=== PATIENT | male | born 1960 | race Caucasian/White ===

== ENCOUNTER 2020-03-03 13:31 | Emergency (ER) | payer MEDICAID, OTHER ==
[~2020-03-03] VITALS: Ht 182.9 cm; Wt 82.0 kg
--- NOTE | 2020-03-03 13:59 | NUR ---
BREAK RN NOTE: PT BIBA, ACCOMPANIED WITH LAW ENFORECEMENT. PT HAD STENT PLACED 01/23, PT HAS BEEN INCARCERATED SINCE 02/27, PT STATES HALF-WAY HAS NOT BEEN ADMINISTERING CARDIAC MEDS. PT C/O LEFT SIDED CP RADIATING TO RT CHEST WITH INTERMITTENT SOB, NAUSEA AND LIGHTHEADEDNESS SINCE LAST NIGHT. PT RATES CP AT 6/10. PT RECEIVED [facility] DIRECTOR [employer] IN [facility]. EKG TAKEN ON ARRIVAL. 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 LAW ENFOREMENT AT BEDSIDE. AWAITING MD AND ORDERS. REPORT GIVEN TO PRIMARY RN CONNIE.
--- NOTE | 2020-03-03 14:01 | NUR ---
AMAN BLACK AT BEDSIDE FOR INITIAL ASSESSMENT.
[2020-03-03 14:31] LABS: BASOPHILS # (AUTO) 0.04 x10^3/uL (0-0.1); BASOPHILS % (AUTO) 1 % (0-1); EOSINOPHILS # (AUTO) 0.09 x10^3/uL (0-0.4); EOSINOPHILS % (AUTO) 1 % (1-7); LYMPHOCYTES # (AUTO) 1.39 x10^3/uL (1-3.4); LYMPHOCYTES % (AUTO) 19 % (22-44); MD NO; MEAN CORPUSCULAR HEMOGLOBIN 32.9 pg (27.5-34.5); MEAN CORPUSCULAR HGB CONC 33.2 g/dL (33.2-36.2); MEAN CORPUSCULAR VOLUME 99.3 fL (81-97); MEAN PLATELET VOLUME 7.5 fL (7.4-10.4); MONOCYTES # (AUTO) 0.48 x10^3/uL (0.2-0.8); MONOCYTES % (AUTO) 6 % (2-9); NEUTROPHILS # (AUTO) 5.47 x10^3/uL (1.8-6.8); NEUTROPHILS % (AUTO) 73 % (42-75); PLATELET COUNT 287 x10^3/uL (130-400); RED BLOOD COUNT 4.96 x10^6/uL (4.38-5.82); RED CELL DISTRIBUTION WIDTH 13.9 % (9.4-14.8)
[2020-03-03 14:41] LABS: ALANINE AMINOTRANSFERASE 39 U/L (12-78); ALBUMIN 3.2 g/dL (3.4-5.0); ANION GAP 3 mmol/L (5-15); CALCIUM 8.7 mg/dL (8.5-10.1); CHLORIDE 103 mmol/L (98-107); CREATININE 1.07 mg/dL (0.7-1.3)
[2020-03-03 14:45] LABS: ALKALINE PHOSPHATASE 77 U/L (45-117); BILIRUBIN,TOTAL 0.6 mg/dL (0.2-1.0); TOTAL PROTEIN 7.5 g/dL (6.4-8.2); TROPONIN I < 0.015 ng/mL (0.000-0.045)
[2020-03-03 15:25] VITALS: BP 128/92
--- NOTE | 2020-03-03 16:26 | NUR ---
ASSUMED CARE OF PT.
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
--- NOTE | 2020-03-03 17:04 | NUR ---
PT SEEN WALKING OUT OF AMBULANCE [facility]AY. APPROACHED PT. PT STATED HE IS NOT GOING TO STAY FOR COMPLETION OF TREATMENT. ENCOURAGED PT TO RETURN IF HE HAS CP OR FOR ANY REASON. ADDITIONALLY DISCUSSED WITH PT TO BE CERTAIN TO START TAKING HIS MEDS AGAIN. MADE AWARE PT LEFT WITHOUT TX COMPLETED.
== END 2020-03-03 17:08 | disposition home or self-care (01) ==
LOC: ED 15:30
DX: R07.9 Chest pain, unspecified (principal); I51.7 Cardiomegaly; R06.02 Shortness of breath; R00.2 Palpitations; Z87.891 Personal history of nicotine dependence
CPT/HCPCS: 36415; 71045; 80053; 83880; 84484; 85025; 93005; 99285

== ENCOUNTER 2020-11-08 22:41 | Emergency (ER) | payer MEDICAID, OTHER ==
[~2020-11-08] VITALS: Ht 182.9 cm; Wt 88.5 kg
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
[2020-11-08 23:19] LABS: BASOPHILS % (AUTO) 0 % (0-1); EOSINOPHILS % (AUTO) 3 % (1-7); LYMPHOCYTES % (AUTO) 28 % (22-44); MD NO; MEAN CORPUSCULAR HEMOGLOBIN 34.6 pg (27.5-34.5); MEAN CORPUSCULAR HGB CONC 34.6 g/dL (33.2-36.2); MEAN PLATELET VOLUME 7.5 fL (7.4-10.4); MONOCYTES % (AUTO) 8 % (2-9); NEUTROPHILS % (AUTO) 61 % (42-75); PLATELET COUNT 216 x10^3/uL (130-400); RED BLOOD COUNT 4.66 x10^6/uL (4.38-5.82); RED CELL DISTRIBUTION WIDTH 15.2 % (9.4-14.8)
[2020-11-08 23:28] LABS: ALANINE AMINOTRANSFERASE 34 U/L (12-78); ALBUMIN 3.1 g/dL (3.4-5.0); ANION GAP 6 mmol/L (5-15); CALCIUM 8.8 mg/dL (8.5-10.1); CHLORIDE 107 mmol/L (98-107); CREATININE 1.03 mg/dL (0.7-1.3)
[2020-11-08 23:32] LABS: ALKALINE PHOSPHATASE 79 U/L (45-117); BILIRUBIN,TOTAL 0.2 mg/dL (0.2-1.0); TOTAL PROTEIN 6.8 g/dL (6.4-8.2); TROPONIN I < 0.015 ng/mL (0.000-0.045)
--- NOTE | 2020-11-08 23:43 | NUR ---
RESTING IN BED IN NAD. CALL [facility] IN REACH. SAFETY MAINTAINED. ALL VS REMAIN STABLE ON RA.
[2020-11-08] MEDS ORDERED: METHOCARBAMOL 750 MG TABLET ONE (23:48)
--- NOTE | 2020-11-08 23:59 | NUR ---
DISCHARGE REVIEWED WITH PATIENT AND DOC GUARD AT BEDSIDE. PATIENT AND DOC GUARD HAD NO FURTHER QUESTIONS AT THIS TIME. IV REMOVED PER DC PROTOCOL. PATIENT AND DOC WAITING FOR TRANSPORTATION IN ROOM
[2020-11-09] VITALS: BP 100/63
[2020-11-09] MEDS ORDERED: METHOCARBAMOL 750 MG TABLET PO ONE
== END 2020-11-09 00:27 | disposition home or self-care (01) ==
LOC: ED 23:19
DX: M54.5 Low back pain (principal); I25.10 Atherosclerotic heart disease of native coronary artery without angina pectoris; R94.31 Abnormal electrocardiogram [ECG] [EKG]; I25.2 Old myocardial infarction; G89.29 Other chronic pain; I10 Essential (primary) hypertension; Z98.61 Coronary angioplasty status
CPT/HCPCS: 36415; 71045; 80053; 84484; 85025; 93005; 99285